=== PATIENT | male | born 2005 | race Caucasian/White ===

== ENCOUNTER 2023-08-30 14:48 | Outpatient (CLI) | payer OTHER, SELFPAY ==
--- NOTE | ~2023-08-30 | US_ITS ---
EXAMINATION: US soft tissue head and neck DATE: 08/30/2023 15:07 INDICATION: Neck fullness. Right neck pain. TECHNIQUE: Multiple grayscale and Doppler ultrasound images of the head and neck were obtained. COMPARISON: None FINDINGS: There is no abnormal mass or lymphadenopathy in the patient's area of concern in the right neck. The right submandibular gland is normal. IMPRESSION: 1. No abnormality in the patient's area of concern. Reviewed, dictated and finalized at location E.
== END 2023-08-30 14:49 | disposition home or self-care (01) ==
LOC: CHSIMG 14:50
PROVIDERS: PCP Family Medicine; Visit Provider Family Medicine
DX: R22.1 Localized swelling, mass and lump, neck (principal)
CPT/HCPCS: 76536

== ENCOUNTER 2023-09-13 00:30 | Emergency (ER) | payer OTHER, SELFPAY ==
[2023-09-13 00:31] VITALS: BP 117/77; PULSE 99; RESP 18; TEMP 36.5; O2SAT 99
--- NOTE | 2023-09-13 00:32 | ECG_ITS ---
SEE SCANNED COPY FOR CONFIRMED REPORT. MTDD
--- NOTE | 2023-09-13 00:35 | ED.PSYCH ---
HPI - Psych General Chief Complaint: Psychiatric Symptoms Stated Complaint: psychiatric Time Seen by Provider: 09/13/23 00:32 Source: patient Mode of arrival: EMS Limitations: no limitations History of Present Illness HPI Narrative: Patient is a 18-year-old male with discussions of depressed mood with his mother on the phone this evening. Mother said that he was having some suicide ideation at that time and he was alcohol intoxicated. He comes to the ER via EMS intoxicated on alcohol. He denies any suicide or homicide ideations. He discussed with his mother about self-harm but not suicide ideation. EMS and nursing staff have not gotten any information on self-harm or suicidal thoughts this evening. Patient is depressed with a new baby. He feels like he is not going to be a good father. This evening the patient ended up in the ER due to the fact that his mother called the ER and asked how to get a wellness check on the patient. We called for the mother and sent PD to the house as well as ambulance and he was brought here for further evaluation. Upon examination, the patient does not have any suicide ideation or self-harm ideation at this time. Negative for homicide ideation. MD complaint: feels depressed Onset (ago): day(s) (1) Duration: intermittent, changing over time and resolved prior to arrival History of same: Yes Relieving factors: other ( Decreasing alcohol intoxication) Exacerbating factors: alcohol Context: recent alcohol abuse and significant life stressor ( new baby; /significant other is at home with the baby at this time) Associated psychiatric symptoms: depression Associated symptoms: denies other symptoms Treatments prior to arrival: none Review of Systems Review of Systems: All systems reviewed & are unremarkable except as noted in HPI and below Constitutional: Constitutional: Reports no additional constitutional complaints Eyes: Eyes: Reports no additional eye complaints ENT: Reports system reviewed and no additional complaints, except as documented Cardiovascular: Cardiovascular: Reports no additional cardiovascular complaints Respiratory: Respiratory: Reports no additional respiratory complaints Gastrointestinal: Gastrointestinal: Reports no additional gastrointestinal complaints Genitourinary: Genitourinary: Reports no additional male genitourinary complaints Musculoskeletal: Musculoskeletal: Reports no additional musculoskeletal complaints Integumentary/Breasts: Skin/Breast: Reports system reviewed and no additional complaints, except as docu Neurologic: Reports system reviewed and no additional complaints, except as documented Psychiatric: Psychiatric: Reports no additional psychiatric complaints Endocrine: Endocrine: Reports no additional endocrine complaints Hematologic/Lymphatic: Hematologic/Lymphatic: Reports no additional hematologic/lymphatic complaints Allergic/Immunologic: Allergic/Immunologic: Reports no additional allergic/immunologic complaints Exam Const: General: healthy appearing Nutritional Appearance: well nourished Orientation/consciousness: patient oriented x3 HENMT: Head: normal to inspection Ears: external ears normal Face/Nose/Sinus: Normal external nose present Eyes: Conjunctivae: conjunctivae normal Pupils: Equal, round and reactive pupils present EOM: EOMs intact bilaterally Neck: Neck: normal visual inspection Chest: Chest palpation & inspection: normal inspection of the chest Resp: Effort & Inspection: normal respiratory effort and not labored Auscultation: clear to auscultation bilaterally Cardio: Rate: regular rate Rhythm: regular rhythm Heart sounds: no murmurs GI: Inspection: non-distended GI Palp: Yes Soft to palpation and No Tenderness to palpation present (GI) Auscultation: normal bowel sounds : General: Yes bladder normal to palpation Back/Spine/Pelvis: Back: no CVA tenderness Skin: General skin exam: normal color Rashes: no
--- NOTE | 2023-09-13 00:50 | PC.NURSE ---
initially unable to perform columbia scale at this time, patient is clearly intoxicated, also admits to drinking this evening.
[2023-09-13 01:03] LABS: Amphetamine Screen Urine Negative (Negative); Barbiturate Screen Urine Negative (Negative); Benzodiazepines Screen Urine Negative (Negative); Cannabinoid Screen Urine Negative (Negative); Cocaine Screen Urine Negative (Negative); Methadone Screen Urine Negative (Negative); Opiate Screen Urine Negative (Negative); Phencyclidine Screen Urine Negative (Negative)
--- NOTE | 2023-09-13 01:15 | PC.NURSE ---
Patient requesting to leave at this time. Patient asked to wait for a few minutes so that ERP can do full evaluation.
--- NOTE | 2023-09-13 01:18 | PC.NURSE ---
ERP at bedside doing evaluation on patient, does not appear to be SI/HI at this time.
[2023-09-13 01:59] LABS: Appearance Urine Clear (Clear); Bilirubin Urine Negative (Negative); Blood Urine Negative (Negative); Color Urine Light Yellow (Yellow); Glucose Urine UA Negative (Negative); Ketones Urine Negative (Negative); Leukocyte Esterase Ur Negative LEU/UL (Negative); Nitrate Urine Negative (Negative); Protein Urine Negative (Negative); Specific Grav Ur <= 1.005 (1.010-1.020); Urobilinogen Urine 0.2 mg/dL (0.2-1.0); pH Urine 6.5 (5.0-8.0)
[2023-09-13 02:01] LABS: Add Urine Microscopic? NO
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
== END 2023-09-13 03:30 | disposition home or self-care (01) ==
PROVIDERS: Emergency Provider Emergency Medicine
DX: F43.21 Adjustment disorder with depressed mood (principal)
CPT/HCPCS: 80307; 81003; 93005; 99283

== ENCOUNTER 2023-12-26 12:45 | Emergency (ER) | payer MEDICAID, SELFPAY ==
[2023-12-26 12:45] VITALS: BP 120/88; PULSE 94; RESP 18; TEMP 36.5; O2SAT 100
--- NOTE | 2023-12-26 12:53 | ED.WOUNDLAC ---
HPI - Wound/Laceration General Chief Complaint: Wound/Laceration Stated Complaint: left foot laceration Time Seen by Provider: 12/26/23 12:50 Source: patient Mode of arrival: ambulatory Limitations: no limitations History of Present Illness HPI narrative: 18 year old male presents to the Emergency Department with laceration to the top of his left foot. States he lacerated it on a piece of glass last night around 0100. Unknown last tetanus. Onset (ago): hour(s) (12) Place: home Patient tetanus UTD: No Context: accidental Associated symptoms: pain Related Data Allergies Allergy/AdvReac Type Severity Reaction Status Date / Time No Known Allergies Allergy Verified 12/26/23 12:52 Review of Systems Review of Systems: All systems reviewed & are unremarkable except as noted in HPI and below Constitutional: Constitutional: Reports as per HPI Eyes: Eyes: Reports as per HPI ENT: Reports system reviewed and no additional complaints, except as documented Cardiovascular: Cardiovascular: Reports as per HPI Respiratory: Respiratory: Reports as per HPI Gastrointestinal: Gastrointestinal: Reports as per HPI Genitourinary: Genitourinary: Reports no additional male genitourinary complaints Musculoskeletal: Musculoskeletal: Reports no additional musculoskeletal complaints Integumentary/Breasts: Skin/Breast: Reports system reviewed and no additional complaints, except as docu Neurologic: Reports system reviewed and no additional complaints, except as documented PMFSH Social History Social History Substance use type: does not use Exam Const: General: healthy appearing Nutritional Appearance: well nourished Orientation/consciousness: patient oriented x3 Limitations: no limitations HENMT: Head: normal to inspection Ears: external ears normal Face/Nose/Sinus: Normal external nose present Face and sinus: normal facial exam Eyes: Pupils: Equal, round and reactive pupils present EOM: EOMs intact bilaterally Direct Ophthalmoscopy: no photophobia Neck: Neck: normal visual inspection Chest: Chest palpation & inspection: normal inspection of the chest Resp: Effort & Inspection: normal respiratory effort Cardio: Rate: regular rate GI: Inspection: non-distended GI Palp: No Tenderness to palpation present (GI) Skin: General skin exam: normal color Other: 4 cm gaping laceration to dorsal left foot, no active bleeding Neuro: General: patient oriented x3 and moves all extremities Speech: normal speech Other: grossly normal Extrem: General: no clubbing, cyanosis or edema Other: 4 cm laceration to dorsal left foot Psych: Mental Status: mental status grossly normal Course Course Emergency Course: 18 y/o male presents to the ED with laceration to dorsal left foot. Lacerated on piece of glass at 1 am. PE: 4 cm laceration dorsal left foot, no active bleeding, NV intact *discussed with patient. Advised wound is considered contaminated and normally would not close, but since gaping will close and start antibiotics Tx: laceration repaired, neosporin ointment, dressing, tetanus updated Rx and Instructions Vital Signs Vital signs: Vital Signs Temperature 36.5 C 12/26/23 12:45 Pulse Rate 94 12/26/23 12:45 Respiratory Rate 18 12/26/23 12:45 Blood Pressure 120/88 12/26/23 12:45 Pulse Oximetry 100 12/26/23 12:45 Oxygen Delivery Room Air 12/26/23 12:45 Temperature 36.5 C 12/26/23 12:45 Pulse Rate 94 12/26/23 12:45 Respiratory Rate 18 12/26/23 12:45 Blood Pressure 120/88 12/26/23 12:45 Pulse Oximetry 100 12/26/23 12:45 Oxygen Delivery Room Air 12/26/23 12:45 Procedures Laceration Laceration 1: Site: lower extremity (left foot) Side (If applicable): left Size (cm): 4 (cm) Description: linear Depth: simple, single layer Local Anesthetic: lidocaine 1%
[2023-12-26] MEDS: TETANUS,DIPHTHERIA,AC PERTUSSIS ADULT 0.5 ML (ADACEL) IM (13:07)
[2023-12-26] MEDS: LIDOCAINE HCL 1% LOCAL INJ 10 ML VIAL INFILTRATE (13:09)
== END 2023-12-26 13:38 | disposition home or self-care (01) ==
LOC: CHSED 13:35
PROVIDERS: Emergency Provider Emergency Medicine
DX: S91.312A Laceration without foreign body, left foot, initial encounter (principal); Z23 Encounter for immunization; W25.XXXA Contact with sharp glass, initial encounter; Y92.009 Unspecified place in unspecified non-institutional (private) residence as the place of occurrence of the external cause
CPT/HCPCS: 12002; 90715; 99283

== ENCOUNTER 2024-03-02 13:29 | Outpatient (CLI) | payer OTHER, SELFPAY ==
[2024-03-02 13:51] LABS: Hemoglobin 15.1 g/dL (14.0-18.0); Mean Corpuscular HGB Conc 35.1 g/dL (32-36); Mean Corpuscular Hemoglobin 30.4 pg (27.0-31.0); Mean Corpuscular Volume 86.7 fL (78.0-102.0); Mean Platelet Volume 9.8 fl (8.7-11.0); Platelet Count Result 231 K/mm3 (150-420); Red Blood Count 4.96 M/mm3 (4.70-6.10); Red Cell Distribution Width 12.4 % (11.6-14.4); White Blood Count 4.8 K/mm3 (4.8-10.8)
[2024-03-02 14:10] LABS: Hemoglobin A1C 4.7 % (<5.7)
[2024-03-02 14:52] LABS: Alanine Aminotransferase 16 U/L (16-63); Albumin Level 3.9 g/dL (3.4-5.0); Alkaline Phosphatase 75 U/L (46-116); Anion Gap 5 mmol/L (4-12); Aspartate Amino Transferase 14 U/L (15-37); Bilirubin Direct 0.2 mg/dL (0-0.2); Bilirubin,Total 0.9 mg/dL (0.00-1.00); Blood Urea Nitrogen 16 mg/dL (7-18); Calcium 9.2 mg/dL (8.5-10.1); Carbon Dioxide 31 mmol/L (21-32); Chloride 103 mmol/L (98-108); Cholesterol 152 mg/dL (0-200); Estimated Glomerular Filt Rate > 60; Glucose 94 mg/dL (70-99); HDL Direct 45 mg/dL (40-60); LDL Cholesterol Calculated 85 mg/dL (<130); Osmolality Calculated 289 mOsm/kg (285-295); Potassium 4.4 mmol/L (3.5-5.1); Sodium 139 mmol/L (136-145); Thyroid Stimulating Hormone 1.08 uIU/mL (0.36-3.74); Total Protein 6.8 g/dL (6.4-8.2); Triglycerides 110 mg/dL (0-150)
== END 2024-03-02 13:30 | disposition home or self-care (01) ==
LOC: CHSLAB 13:38
PROVIDERS: PCP Family Medicine
DX: Z79.899 Other long term (current) drug therapy (principal)
CPT/HCPCS: 36415; 80053; 80061; 82248; 83036; 84443; 85027

== ENCOUNTER 2024-03-05 20:56 | Emergency (ER) | payer OTHER, SELFPAY ==
[2024-03-05] VITALS (8 sets, daily range): BP systolic 116–128; BP diastolic 66–81; PULSE 68–93; RESP 12–24; TEMP 36.8–36.9; O2SAT 97–100
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
[2024-03-05] MEDS: LORazepam (*CRX) 1 MG TABLET PO (21:25)
--- NOTE | 2024-03-05 21:40 | PC.NURSE ---
Patient resting in recumbent position on stretcher with girlfriend at bedside. Patient reports feeling much more relaxed and appears calmer than initial assessment. Patient aware awaiting lab work. Patient respirations now at regular rate and SpO2 remains 97-99% on room air. Call light in reach. Side rail up x 1.
[2024-03-05 21:44] LABS: Basophils Absolute Auto 0.07 K/mm3 (0.00-0.10); Basophils Percent Auto 0.9 % (0.0-1.0); Eosinophils Absolute Auto 0.38 K/mm3 (0.02-0.50); Eosinophils Percent Auto 5.1 % (1.0-6.0); Hematocrit 40.9 % (40.0-54.0); Hemoglobin 14.3 g/dL (14.0-18.0); Immature Granulocyte Absolute 0.02 K/mm3 (0.00-0.00); Immature Granulocyte Percent A 0.3 % (0.0-0.0); Lymphocytes Absolute Auto 2.49 K/mm3 (1.10-4.50); Lymphocytes Percent Auto 33.6 % (18.0-42.0); Mean Corpuscular Hemoglobin 30.4 pg (27.0-31.0); Mean Platelet Volume 9.8 fl (8.7-11.0); Monocytes Absolute Auto 0.74 K/mm3 (0.10-0.90); Neutrophils Percent Auto 50.1 % (50.0-70.0); Platelet Count Result 256 K/mm3 (150-420); Red Cell Distribution Width 12.7 % (11.6-14.4); White Blood Count 7.4 K/mm3 (4.8-10.8)
[2024-03-05 21:58] LABS: Alanine Aminotransferase 22 U/L (16-63); Albumin Level 3.9 g/dL (3.4-5.0); Alkaline Phosphatase 91 U/L (46-116); Anion Gap 9 mmol/L (4-12); Aspartate Amino Transferase 27 U/L (15-37); Bilirubin,Total 0.6 mg/dL (0.00-1.00); Blood Urea Nitrogen 11 mg/dL (7-18); Calcium 8.9 mg/dL (8.5-10.1); Carbon Dioxide 30 mmol/L (21-32); Chloride 102 mmol/L (98-108); Estimated CRCL calculation 116 ml/min; Estimated Glomerular Filt Rate > 60; Glucose 107 mg/dL (70-99); Osmolality Calculated 291 mOsm/kg (285-295); Potassium 3.4 mmol/L (3.5-5.1); Sodium 141 mmol/L (136-145)
[2024-03-05 22:01] LABS: Lactic Acid Reflex 1.5 mmol/L (0.4-2.0)
== END 2024-03-05 22:10 | disposition home or self-care (01) ==
PROVIDERS: Emergency Provider Family Medicine; PCP Family Medicine
DX: F41.0 Panic disorder [episodic paroxysmal anxiety] (principal)
CPT/HCPCS: 36415; 71045; 80053; 83605; 85025; 99284; A9270

== ENCOUNTER 2024-03-12 13:34 | Emergency (ER) | payer OTHER, SELFPAY ==
--- NOTE | 2024-03-12 13:43 | ED_ITS ---
HPI - Psych General Chief Complaint: Psychiatric Symptoms Stated Complaint: anxiety Time Seen by Provider: 03/12/24 13:43 Source: patient Mode of arrival: ambulatory Limitations: no limitations History of Present Illness HPI Narrative: Patient is a 18-year-old male with multiple psychiatric conditions that are unclear at this time. There was a history of bipolar but then it was retracted by a new psychiatrist. He is here with auditory and visual hallucinations. He is here with his girlfriend/ child's mother. She said they do not do drugs or drink much alcohol. He had 1 drink of alcohol last night. It appears he has stopped his Lexapro for the past 2 days. No suicide or homicide ideations. No head or neck injuries. He is paranoid at this time and suspicious of people. MD complaint: altered mental status Onset (ago): day(s) (2) Duration: constant History of same: Yes Relieving factors: none Exacerbating factors: none Context: other ( Patient stopped his Lexapro 2 days ago; he is having lots of life stressors at this time ( living in a hotel and other issues)) Associated psychiatric symptoms: auditory hallucinations and visual hallucinations Associated symptoms: denies other symptoms Treatments prior to arrival: none Related Data Home Medications Medication Instructions Recorded Confirmed escitalopram oxalate 10 mg tablet 10 mg PO HS 03/05/24 03/12/24 (Lexapro) hydroxyzine HCl 25 mg tablet 25 mg PO PRN PRN Anxiety 03/05/24 03/12/24 Allergies Allergy/AdvReac Type Severity Reaction Status Date / Time No Known Allergies Allergy Verified 03/12/24 13:55 Review of Systems Review of Systems: All systems reviewed & are unremarkable except as noted in HPI and below Constitutional: Constitutional: Reports no additional constitutional complaints Eyes: Eyes: Reports no additional eye complaints ENT: Reports system reviewed and no additional complaints, except as documented Cardiovascular: Cardiovascular: Reports no additional cardiovascular complaints Respiratory: Respiratory: Reports no additional respiratory complaints Gastrointestinal: Gastrointestinal: Reports no additional gastrointestinal complaints Genitourinary: Genitourinary: Reports no additional male genitourinary complaints Musculoskeletal: Musculoskeletal: Reports no additional musculoskeletal complaints Integumentary/Breasts: Skin/Breast: Reports system reviewed and no additional complaints, except as docu Neurologic: Reports system reviewed and no additional complaints, except as documented Psychiatric: Psychiatric: Reports no additional psychiatric complaints Endocrine: Endocrine: Reports no additional endocrine complaints Hematologic/Lymphatic: Hematologic/Lymphatic: Reports no additional hematologic/lymphatic complaints Allergic/Immunologic: Allergic/Immunologic: Reports no additional allergic/immunologic complaints PMFSH Social History Social History Substance use type: does not use Exam Const: General: healthy appearing Nutritional Appearance: well nourished Orientation/consciousness: patient oriented x3 HENMT: Head: normal to inspection Ears: external ears normal Face/Nose/Sinus: Normal external nose present Eyes: Conjunctivae: conjunctivae normal Pupils: Equal, round and reactive pupils present EOM: EOMs intact bilaterally Neck: Neck: normal visual inspection Chest: Chest palpation & inspection: normal inspection of the chest Resp: Effort & Inspection: normal respiratory effort and not labored Auscultation: clear to auscultation bilaterally and no crackles Cardio: Rate: regular rate Rhythm: regular rhythm Heart sounds: no murmurs GI: Inspection: non-distended GI Palp: Yes Soft to palpation and No Tenderness to palpation present (GI) Auscultation: normal bowel sounds : General: Yes bladder normal to palpation Back/Spine/Pelvis: Back: no CVA tenderness Skin: General skin exam: normal color Rashes: no rashes Wounds: no wounds Neuro: General: No patient oriented x3 ( paucity of speech and answering questions), moves all extremities, no meningeal signs ( no fever), no focal motor deficits and CN's II-XI intact bilaterally Cranial nerves: Yes Nystagmus not present and No Nystagmus present Speech: No normal speech and Abnormal speech present ( paucity of speech) Other: fast exam is negative NIH score is 0 [place] coma Score is 15 Extrem: General: normal to inspection Psych: Mental Status: mental status grossly abnormal Affect: No normal affect Attitude: not cooperative Other: patient is highly suspicious of people and paranoid, he is having auditory and visual hallucinations, he has no suicide or homicide ideations Course Vital Signs Vital signs: Vital Signs Temperature 37.1 C 03/12/24 13:44 Pulse Rate 105 H 03/12/24 13:44 Respiratory Rate 18 03/12/24 13:44 Blood Pressure 117/85 03/12/24 13:44 Temperature 37.1 C 03/12/24 13:44 Pulse Rate 105 H 03/12/24 13:44 Respiratory Rate 18 03/12/24 13:44 Blood Pressure 117/85 03/12/24 13:44 MDM - Psych MDM Narrative Medical decision making narrative: patient is a 18-year-old male with a psychotic episode at this time. I do not feel that there is any medical reason for this psychotic break except his psychiatric condition. This is similar to prior condition situation. He does not want other medical management at this time. He did allow shot of Zyprexa at this time. We will monitor the patient and further discuss this situation after the Zyprexa has had time to work. Patient slept for over an hour and we woke him up to see how he was doing. He is feeling much better and back to normal. No suicide or homicide ideations. No further hallucinations of visual or auditory at this time. They will call and get to see the psychiatrist as soon as possible this week. We made sure they had a safe place to go for sleeping tonight and they are going to go to the hotel as well as fed them in the emergency room. 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 Come back to the ER with any further problems. Restart your Lexapro as soon as possible and take daily. Prescriptions: No Action hydroxyzine HCl 25 mg tablet 25 mg PO PRN PRN (Reason: Anxiety) escitalopram oxalate [Lexapro] 10 mg tablet 10 mg PO HS Follow-up/Referrals: Eliz,Ria Wright MD [Primary Care Provider] - Time of Disposition: 16:16
[2024-03-12 13:44] VITALS: BP 117/85; PULSE 105; RESP 18; TEMP 37.1
[2024-03-12] MEDS: OLANZapine 10 MG, WATER, STERILE FOR INJECTION 2.1 ML IM (14:07)
[2024-03-12 16:17] VITALS: BP 118/70; PULSE 84; RESP 20; TEMP 36.9; O2SAT 98
== END 2024-03-12 16:18 | disposition home or self-care (01) ==
PROVIDERS: Emergency Provider Emergency Medicine; PCP Family Medicine
DX: F23 Brief psychotic disorder (principal); Z79.899 Other long term (current) drug therapy
CPT/HCPCS: 96372; 99283; J2359

== ENCOUNTER 2024-04-08 23:54 | Emergency (ER) | payer OTHER, SELFPAY ==
[2024-04-09] VITALS (9 sets, daily range): BP systolic 115–140; BP diastolic 76–102; PULSE 89–115; RESP 15–18; TEMP 36.6–36.7; O2SAT 97–100
--- NOTE | 2024-04-09 00:08 | ED_ITS ---
HPI - Psych General Chief Complaint: Psychiatric Symptoms <Bill Loyd MD - Last Filed: 04/09/24 06:58> Stated Complaint: psychiatric evaluation <Bill Loyd MD - Last Filed: 04/09/24 06:58> Time Seen by Provider: 04/09/24 00:07 <Bill Loyd MD - Last Filed: 04/09/24 06:58> Source: patient and police <Bill Loyd MD - Last Filed: 04/09/24 06:58> Mode of arrival: ambulatory <Bill Loyd MD - Last Filed: 04/09/24 06:58> Limitations: no limitations <Bill Loyd MD - Last Filed: 04/09/24 06:58> History of Present Illness HPI Narrative: 18-year-old male with a history of bipolar disorder, prior history of suicidal ideation was brought in by the police after his girlfriend called the police for -- alcohol intoxication -- suicidal ideation on arrival to the ED the patient is agitated. He resists being examined. <Bill Loyd MD - Last Filed: 04/09/24 06:58> MD complaint: suicidal ideation and altered mental status <Bill Loyd MD - Last Filed: 04/09/24 06:58> Duration: constant <Bill Loyd MD - Last Filed: 04/09/24 06:58> History of same: Yes <Bill Loyd MD - Last Filed: 04/09/24 06:58> Relieving factors: none <Bill Loyd MD - Last Filed: 04/09/24 06:58> Exacerbating factors: none <Bill Loyd MD - Last Filed: 04/09/24 06:58> Context: recent alcohol abuse <Bill Loyd MD - Last Filed: 04/09/24 06:58> Associated psychiatric symptoms: suicidal ideation <Bill Loyd MD - Last Filed: 04/09/24 06:58> Associated symptoms: denies other symptoms <Bill Loyd MD - Last Filed: 04/09/24 06:58> Treatments prior to arrival: none <Bill Loyd MD - Last Filed: 04/09/24 06:58> Related Data Home Medications: Home Medications Medication Instructions Recorded Confirmed escitalopram oxalate 10 mg tablet 10 mg PO HS 03/05/24 04/09/24 (Lexapro) hydroxyzine HCl 25 mg tablet 25 mg PO PRN PRN Anxiety 03/05/24 04/09/24 <Bill Loyd MD - Last Filed: 04/09/24 06:58> Allergies/Adverse Reactions: Allergies Allergy/AdvReac Type Severity Reaction Status Date / Time No Known Allergies Allergy Verified 04/09/24 03:34 <Bill Loyd MD - Last Filed: 04/09/24 06:58> Review of Systems Review of Systems: All systems reviewed & are unremarkable except as noted in HPI and below <Bill Loyd MD - Last Filed: 04/09/24 06:58> PMFSH Past Medical History Medical History: Medical History (Updated 04/09/24 @ 08:27 by Hany Sargent MD) Alcoholism Bipolar 1 disorder Depression with suicidal ideation <Bill Loyd MD - Last Filed: 04/09/24 06:58> Social History Social History: Social History Substance use type: does not use <Bill Loyd MD - Last Filed: 04/09/24 06:58> Exam Const: General: no acute distress and confusion <Bill Loyd MD - Last Filed: 04/09/24 06:58> Limitations: altered mental status <Bill Loyd MD - Last Filed: 04/09/24 06:58> Other: patient is confused. He is paranoid and thinks that they are trying to kill him. Police who brought him stated that he is suicidal. Patient is agitated and has to be physically restrained by the police. <Bill Loyd MD - Last Filed: 04/09/24 06:58> HENMT: Head: normal to inspection <Bill Loyd MD - Last Filed: 04/09/24 06:58> Ears: external ears normal <Bill Loyd MD - Last Filed: 04/09/24 06:58> Face/Nose/Sinus: Normal external nose present <Bill Loyd MD - Last Filed: 04/09/24 06:58> Face and sinus: normal facial exam <Bill Loyd MD - Last Filed: 04/09/24 06:58> Mouth: Yes Normal oral and palatal mucosa present <Bill Loyd MD - Last Filed: 04/09/24 06:58> Throat: posterior oropharynx normal <Bill Loyd MD - Last Filed: 04/09/24 06:58> Eyes: Conjunctivae: conjunctivae normal <Bill Loyd MD - Last Filed: 04/09/24 06:58> Pupils: Equal, round and reactive pupils present <Bill Loyd MD - Last Filed: 04/09/24 06:58> EOM: EOMs intact bilaterally <Bill Loyd MD - Last Filed: 04/09/24 06:58> Direct Ophthalmoscopy: no photophobia <Bill Loyd MD - Last Filed: 04/09/24 06:58> Neck: Neck: normal visual inspection, no lymphadenopathy and no meningeal signs <Bill Loyd MD - Last Filed: 04/09/24 06:58> Chest: Chest palpation & inspection: normal inspection of the chest <Bill Loyd MD - Last Filed: 04/09/24 06:58> Resp: Effort & Inspection: normal respiratory effort <Bill Loyd MD - Last Filed: 04/09/24 06:58> Auscultation: clear to auscultation bilaterally <Bill Loyd MD - Last Filed: 04/09/24 06:58> Cardio: Rate: regular rate <Bill Loyd MD - Last Filed: 04/09/24 06:58> Rhythm: regular rhythm <Bill Loyd MD - Last Filed: 04/09/24 06:58> GI: GI Palp: Yes Soft to palpation <MD Cony Kramer Last Filed: 04/09/24 06:58> Other: No tenderness/rigidity /rebound. <Bill Loyd MD - Last Filed: 04/09/24 06:58> : General: Yes no CVA tenderness <Bill Loyd MD - Last Filed: 04/09/24 06:58> Back/Spine/Pelvis: Back: no CVA tenderness <Bill Loyd MD - Last Filed: 04/09/24 06:58> Skin: General skin exam: normal color <Bill Loyd MD - Last Filed: 04/09/24 06:58> Rashes: no rashes <Bill Loyd MD - Last Filed: 04/09/24 06:58> Wounds: no wounds <Bill Loyd MD - Last Filed: 04/09/24 06:58> Neuro: General: patient oriented x3 ( Patient is confused.), moves all extremities, no meningeal signs, no focal motor deficits and CN's II-XI intact bilaterally <Bill Loyd MD - Last Filed: 04/09/24 06:58> Cranial nerves: Yes Nystagmus not present <Bill Loyd MD - Last Filed: 04/09/24 06:58> Speech: normal speech <Bill Loyd MD - Last Filed: 04/09/24 06:58> Gait exam (Neuro): Normal gait present <Bill Loyd MD - Last Filed: 04/09/24 06:58> Extrem: General: normal to inspection and no clubbing, cyanosis or edema <Bill Loyd MD - Last Filed: 04/09/24 06:58> Psych: Other: Patient is agitated. His girlfriend stated that he was suicidal. He made some suicidal remarks to the police. The patient is agitated and is noncommunicable at this time. <Bill Loyd MD - Last Filed: 04/09/24 06:58> Course Course Emergency Course: The patient was very agitated on presentation and he needed to be restrained by 2 police officers. Patient continued to be agitated. He was uncontrollable. The patient received Ativan 2 mg IM subsequently the patient has not been agitated. Unable to do EKG and labs.\ He he slept all night. He was monitored through the night and has remained well controlled without an y agitation this morning he says is more sober. Will sign out this patient to Dr. Sargent <Bill Loyd MD - Last Filed: 04/09/24 06:58> Vital Signs Vital signs: Vital Signs Pulse Rate 114 H 04/09/24 00:16 Blood Pressure 140/102 H 04/09/24 00:16 Temperature 36.6 C 04/09/24 06:54 Pulse Rate 115 H 04/09/24 06:54 Respiratory Rate 16 04/09/24 06:54 Blood Pressure 120/82 04/09/24 06:54 Pulse Oximetry 97 04/09/24 06:54 Oxygen Delivery Room Air 04/09/24 06:54 <Bill Loyd MD - Last Filed: 04/09/24 06:58> Vital Signs Pulse Rate 114 H 04/09/24 00:16 Blood Pressure 140/102 H 04/09/24 00:16 Temperature 36.6 C 04/09/24 06:54 Pulse Rate 115 H 04/09/24 06:54 Respiratory Rate 16 04/09/24 06:54 Blood Pressure 120/82 04/09/24 06:54 Pulse Oximetry 97 04/09/24 06:54 Oxygen Delivery Room Air 04/09/24 06:54 <Hany Sargent MD - Last Filed: 04/09/24 08:28> MDM - Psych MDM Narrative Medical decision making narrative: alcohol intoxication agitation <Bill Loyd MD - Last Filed: 04/09/24 06:58> alcohol intoxication agitation patient woke up this morning calm and collected; he is not suicidal or homicidal; we got all his laboratory studies done which were normal and medically clear; I started him on Risperdal at this time and will send him 30 days supply to prevent recurrence of what appears to be paranoid schizophrenia; he will need to follow up with his primary doctor and psychiatrist as soon as possible to review medications; he has been recurrent to the ER and does not have any antipsychotic of his home medication regimen <Hany Sargent MD - Last Filed: 04/09/24 08:28> Lab Data Attestation: I reviewed the patient's lab results. <Hany Sargent MD - Last Filed: 04/09/24 08:28> Result diagrams: 04/09/24 07:28 04/09/24 07:28 <Bill Loyd MD - Last Filed: 04/09/24 06:58> Labs: Lab Results 04/09/24 Range/Units 07:28 WBC Pending RBC Pending Hgb Pending Hct Pending MCV Pending MCH Pending MCHC Pending RDW Pending Plt Count Pending MPV Pending Immature Gran % (Auto) Pending Neut % (Auto) Pending Lymph % (Auto) Pending [place] % (Auto) Pending Eos % (Auto) Pending Baso % (Auto) Pending Lymph # (Auto) Pending [place] # (Auto) Pending Eos # (Auto) Pending Baso # (Auto) Pending Abs Immat Gran (auto) Pending Absolute Neuts (auto) Pending Absolute Nucleated RBC Pending Nucleated RBC % Pending Sodium Pending Potassium Pending Chloride Pending Carbon Dioxide Pending Anion Gap Pending BUN Pending Creatinine Pending Estim Creat Clear Calc Pending Estimated GFR Pending Glucose Pending Calculated Osmolality Pending Calcium Pending Total Bilirubin Pending AST Pending ALT Pending Alkaline Phosphatase Pending Total Protein Pending Albumin Pending Lipase Pending TSH Pending Salicylates Pending Acetaminophen Pending Ethyl Alcohol Pending <Bill Loyd MD - Last Filed: 04/09/24 06:58> Lab Results 04/09/24 Range/Units 07:28 WBC Pending RBC Pending Hgb Pending Hct Pending MCV Pending MCH Pending MCHC Pending RDW Pending Plt Count Pending MPV Pending Immature Gran % (Auto) Pending Neut % (Auto) Pending Lymph % (Auto) Pending [place] % (Auto) Pending Eos % (Auto) Pending Baso % (Auto) Pending Lymph # (Auto) Pending [place] # (Auto) Pending Eos # (Auto) Pending Baso # (Auto) Pending Abs Immat Gran (auto) Pending Absolute Neuts (auto) Pending Absolute Nucleated RBC Pending Nucleated RBC % Pending Sodium Pending Potassium Pending Chloride Pending Carbon Dioxide Pending Anion Gap Pending BUN Pending Creatinine Pending Estim Creat Clear Calc Pending Estimated GFR Pending Glucose Pending Calculated Osmolality Pending Calcium Pending Total Bilirubin Pending AST Pending ALT Pending Alkaline Phosphatase Pending Total Protein Pending Albumin Pending Lipase Pending TSH Pending Salicylates Pending Acetaminophen Pending Ethyl Alcohol Pending <Hany Sargent MD - Last Filed: 04/09/24 08:28> ECG Data EKG #1: ECG completion date: 04/09/24 <Bill Loyd MD - Last Filed: 04/09/24 06:58> ECG completion time: 06:58 <Bill Loyd MD - Last Filed: 04/09/24 06:58> Interpretation: normal sinus rhythm. Normal axis. No ST elevation noted. <Blil Loyd MD - Last Filed: 04/09/24 06:58> Restraint Face to Face Eval ED Reason for Restraint Aggressive/Violent <Hany Sargent MD - Last Filed: 04/09/24 08:28> Evaluation Findings Date Seen by EDP: 04/08/24 <Hany Sargent MD - Last Filed: 04/09/24 08:28> Time Seen by EDP: 23:53 <Hany Sargent MD - Last Filed: 04/09/24 08:28> Pt's immediate situation:: Physical and verbal aggression; police required; elopement risk for unknown suicidal ideations <Hany Sargent MD - Last Filed: 04/09/24 08:28> Pt's reaction to intervention:: patient slept all night with the Ativan <Hany Sargent MD - Last Filed: 04/09/24 08:28> Pt's med/behavioral condition:: patient came to the emergency room physically and verbally aggressive and police were called to assist; after period of time Dr. Loyd ordered Ativan 2 mg IM to the thigh on the right which got the patient to come down in sleep for the rest of the night after 1:00 a.m. <Hany Sargent MD - Last Filed: 04/09/24 08:28> Restraint or Seclusion Need Need to continue or terminate:: we will start psychiatric evaluation and clearance at this time now the patient is calm this restraint [id number] was done for Dr. Loyd ; we removed the restraint order this morning he only required a 1 time dose of medicine last night and no further problems <Hany Sargent MD - Last Filed: 04/09/24 08:28> Discharge Plan Discharge Clinical Impression: Alcohol abuse Psychosis Qualifiers: Psychosis type: schizophrenia Schizophrenia type: paranoid schizophrenia Qualified Code(s): F20.0 - Paranoid schizophrenia <Bill Loyd MD - Last Filed: 04/09/24 06:58> Patient Disposition: Home, Self-Care <Bill Loyd MD - Last Filed: 04/09/24 06:58> Condition: Improved <Bill Loyd MD - Last Filed: 04/09/24 06:58> Instructions: Schizophrenia (ED), Psychotic Disorder (ED) <Bill Loyd MD - Last Filed: 04/09/24 06:58> Additional Instructions: please follow-up with the primary doctor and a psychiatrist as soon as possible this week to review medications. I have started you on a drug called Risperdal to stop any kind of psychotic recurrence. Come back to the emergency room with any suicide or homicide ideations. Discussed alcohol disorder with your primary doctor. <Bill Loyd MD - Last Filed: 04/09/24 06:58> Prescriptions: New risperidone [Risperdal] 0.5 mg tablet 0.5 mg PO DAILY Qty: 30 0RF No Action hydroxyzine HCl 25 mg tablet 25 mg PO PRN PRN (Reason: Anxiety) escitalopram oxalate [Lexapro] 10 mg tablet 10 mg PO HS <Bill Loyd MD - Last Filed: 04/09/24 06:58> Follow-up/Referrals: Eliz,Ria Wright MD [Primary Care Provider] - <Bill Loyd MD - Last Filed: 04/09/24 06:58> Time of Disposition: 08:26 <Bill Loyd MD - Last Filed: 04/09/24 06:58> 08:26 <Hany Sargent MD - Last Filed: 04/09/24 08:28>
--- NOTE | 2024-04-09 00:15 | PC.NURSE ---
Police were called to assist nursing staff with patient. Patient got off stretcher after being brought in by EMS for SI, was standing in room, this RN attempted to get vitals on patient, however the patient jumped out off the stretcher and ran out into the hallway and ran out the front door. Patient did bring himself back in as he didnt have his phone or jacket since they were left in the room. By this time, police were here. This RN let police know that, per EMS, patient had made suicidal statements at his home and thats why he was brought in and nursing staff and physician had not yet evaluated the patient. Patient currently speaking in [facility] and not making any sense. When asked what happened, patient stated that he just needs to go because we will kill him. Patient educated on what was happening. Patient stated that he needed to get out because he was extremely anxious and didnt want to go back to that place and he just needed to go home. ERP attempted to assess patient, patient freaked out and started holding out his arms, screaming at the ERP to kill him , that he wanted to be killed . Patient made this statement several times during rough assessment.
--- NOTE | 2024-04-09 00:17 | PC.NURSE ---
Patient stated that he needed to go to the restroom. Patient was escorted by this RN and police to restroom. This RN needed to step away for a moment to handle another patient matter, at which point patient locked himself in the restroom and would not come out. Police were eventually able to convince the patient to come out and walk back to his room.
--- NOTE | 2024-04-09 00:21 | PC.NURSE ---
Patient attempting to leave room and not cooperate with assessment and staff for mental health evaluation. Patient currently going through supplies in the room, police stepped in the attempt to calm patient and patient was asked to sit down and try to calm down; at which point patient started becoming belligerent with police and charged at the officer and attempted to pull at the officers belt for his weapon. Patient was then detained in room by police. Patient was then more aggressive with police and charged the traffic police officer, knocking off his body camera and fighting with him. At this point patient was moved down to room 5 for safety precautions.
--- NOTE | 2024-04-09 00:22 | ECG_ITS ---
Test Date: 2024-04-09 06:56:11 Measurements Intervals [place] Rate: 85 P: 73 WA: 134 QRS: 64 QRSD: 88 T: 87 QT: 347 QTc: 413 Interpretive Statements SINUS RHYTHM WITH SINUS ARRHYTHMIA BORDERLINE ST-T WAVE ABNORMALITY- HIGH LATERAL LEADS BORDERLINE ECG No previous ECG available for comparison Electronically Signed On 04-09-2024 07:33:21 PASSENGER AGENT by Edu Nguyễn D.O.
--- NOTE | 2024-04-09 00:24 | PC.NURSE ---
Patient mad about not being able to leave and being placed in room 5, so he threw himself on the floor and laid there. After not getting a response, patient started yelling and kicking the door to get out of his room. Police stated that he was too aggressive at this time for staff to try to assess patient. No obvious injuries are noted at this time.
[2024-04-09] MEDS: LORazepam INJ (*CRX) 2 MG/ML VIAL IV PUSH (00:52)
--- NOTE | 2024-04-09 00:53 | PC.NURSE ---
Patient still being aggressive and belligerent with staff and police. Patient was asked again to calm down, patient trying to leave, charging at RN. This RN put her arm up to not be hit by patient. Patient then threw himself into the wall and then on the floor, continuing his tantrum. Patient then got back up and charged this RN again. This RN put her arm back up to keep the patient from hitting her, patient then threw himself into the other wall. Police then stepped in to assist the patient to the bed to attempt to get him to calm down and sit and talk about why he was here in the ER. Patient then started yelling obscenities at police and being belligerent, then began charging at police and staff again. ERP ordered ativan, this RN tried to administer ordered medication, patient began screaming at this RN and charging at this RN. Patient then tried to bargain with this RN. This RN educated patient on how medication would help him calm down. Patient then started being aggressive with staff and police after conversation, began fighting with police and staff by trying to leave again, telling staff and police to just kill him because thats what he wants. Patient detained by police and was administered the ordered medication for safety. Once medication was administered, patient seemed to calm down a little bit and sat on the bed and cried.
--- NOTE | 2024-04-09 01:07 | PC.NURSE ---
This RN let police know they were good to leave. This RN was sitting outside of patients room observing patient while charting, patient started stated hateful comments to this RN, then would try to be nice and get this RN to empathize with patient. Patient was educated on why he was brought to the ED and why he had to have a mental health evaluation. Patient then stated that he was not SI or HI and just wanted to leave. Patient was told that he needed to still be evaluated and staff could not do so since he is under the influence of ETOH. Patient is refusing to cooperate and began being aggressive to this RN and being belligerent to staff. This RN removed herself from patients room for safety. Patient then started being very manipulative to try to persuade this RN to let him leave. Patient was educated again that he had to be deferred at this time and held here for evaluation since he is under the influence. Patient then started throwing himself on the floor, punching the valentin and kicking the door and yelling at this RN. Patient again educated on not doing those things.
--- NOTE | 2024-04-09 01:20 | PC.NURSE ---
Patient is currently calm, lying down on bed, no unsafe behaviors noted, appears to be sleeping. Chest rise and fall as appropriate, no distress noted at this time.
--- NOTE | 2024-04-09 06:45 | PC.NURSE ---
This RN spoke with patient about how he was feeling. Patient is currently a/o x 4. Patient is calm and cooperative at this time. When asked SI/HI questions, patient denies any such claims. Patient states that he is feeling better with ERP at bedside. Patient agreeable to labs and ekg for further evaluation. Patient stated to day shift ERP, that he is aware that he has a drinking problem and his schizophrenia is not under control with any medications at this time, but would like to be started on medications to help with his mental health.
--- NOTE | 2024-04-09 07:00 | PC.NURSE ---
Patient is currently calm, lying down on bed, no unsafe behaviors noted, appears to be sleeping. Chest rise and fall as appropriate, no distress noted at this time. Report given to CARISA Ford.
--- NOTE | 2024-04-09 07:30 | PC.NURSE ---
Urine sample not able to obtained, ERP aware, states we do not need urine test he will cancel it.
[2024-04-09 07:34] LABS: Basophils Absolute Auto 0.05 K/mm3 (0.00-0.10); Basophils Percent Auto 0.7 % (0.0-1.0); Eosinophils Absolute Auto 0.15 K/mm3 (0.02-0.50); Eosinophils Percent Auto 2.2 % (1.0-6.0); Hematocrit 46.2 % (40.0-54.0); Hemoglobin 16.1 g/dL (14.0-18.0); Immature Granulocyte Absolute 0.01 K/mm3 (0.00-0.00); Immature Granulocyte Percent A 0.1 % (0.0-0.0); Lymphocytes Absolute Auto 2.81 K/mm3 (1.10-4.50); Lymphocytes Percent Auto 41.6 % (18.0-42.0); Mean Corpuscular HGB Conc 34.8 g/dL (32-36); Mean Corpuscular Volume 88.8 fL (78.0-102.0); Mean Platelet Volume 9.4 fl (8.7-11.0); Monocytes Absolute Auto 0.73 K/mm3 (0.10-0.90); Monocytes Percent Auto 10.8 % (2.0-11.0); Neutrophils Percent Auto 44.6 % (50.0-70.0); Platelet Count Result 258 K/mm3 (150-420); White Blood Count 6.8 K/mm3 (4.8-10.8)
[2024-04-09] MEDS: risperiDONE 0.25 MG TABLET 0.5 MG PO (07:36)
--- NOTE | 2024-04-09 07:57 | PC.NURSE ---
Patient provided breakfast tray.
[2024-04-09 07:58] LABS: Alanine Aminotransferase 14 U/L (16-63); Alkaline Phosphatase 74 U/L (46-116); Anion Gap 10 mmol/L (4-12); Aspartate Amino Transferase 19 U/L (15-37); Bilirubin,Total 0.5 mg/dL (0.00-1.00); Blood Urea Nitrogen 8 mg/dL (7-18); Calcium 8.9 mg/dL (8.5-10.1); Carbon Dioxide 28 mmol/L (21-32); Chloride 108 mmol/L (98-108); Estimated CRCL calculation 87 ml/min; Estimated Glomerular Filt Rate > 60; Ethanol 125 mg/dL (0-6); Glucose 78 mg/dL (70-99); Lipase 24 U/L (16-77); Osmolality Calculated 299 mOsm/kg (285-295); Potassium 4.1 mmol/L (3.5-5.1); Salicylate 1.8 mg/dL (2.8-20.0); Sodium 146 mmol/L (136-145); Thyroid Stimulating Hormone 3.27 uIU/mL (0.36-3.74); Total Protein 7.2 g/dL (6.4-8.2)
[2024-04-09 08:06] LABS: Acetaminophen < 2 ug/mL (10-30)
--- NOTE | 2024-04-09 08:30 | PC.NURSE ---
ERP spoke with patient and significant other about discharge. ERP feels patient is safe for discharge at this time.
== END 2024-04-09 08:34 | disposition home or self-care (01) ==
PROVIDERS: Internal Medicine Critical Care Medicine; Emergency Provider Emergency Medicine; PCP Family Medicine
DX: F20.0 Paranoid schizophrenia (principal); F10.10 Alcohol abuse, uncomplicated; Z79.899 Other long term (current) drug therapy; Y90.9 Presence of alcohol in blood, level not specified
CPT/HCPCS: 36415; 80053; 80143; 80179; 82077; 83690; 84443; 85025; 93005; 96374; 99284; A9270; J2060